=== PATIENT | male | born 1990 | race Caucasian/White ===

== ENCOUNTER 2019-06-16 01:32 | Emergency (ER) | payer OTHER ==
[~2019-06-16] VITALS: Ht 170.2 cm; Wt 84.4 kg
--- NOTE | 2019-06-16 01:51 | NUR ---
patient being seen by ER physician Dr. Bae.
[2019-06-16] MEDS ORDERED: LORAZEPAM 1 MG TABLET ONE (02:00)
[2019-06-16] MEDS ORDERED: LORAZEPAM 0.5 MG TABLET PO ONE (02:00)
--- NOTE | 2019-06-16 02:40 | NUR ---
Patient discharged to home in stable conditon. Written and verbal after care instructions given. Patient verbalizes understanding of instructions. Pt ambulated out of ER with steady gait, no acute signs of distress, VSS, all belongings taken.
[2019-06-16 02:42] VITALS: BP 114/65
== END 2019-06-16 03:17 | disposition home or self-care (01) ==
LOC: ER 01:40
DX: R10.30 Lower abdominal pain, unspecified (principal); F41.9 Anxiety disorder, unspecified; G47.00 Insomnia, unspecified; E78.00 Pure hypercholesterolemia, unspecified; J45.909 Unspecified asthma, uncomplicated; K21.9 Gastro-esophageal reflux disease without esophagitis; Z88.5 Allergy status to narcotic agent; Z88.1 Allergy status to other antibiotic agents; Z88.8 Allergy status to other drugs, medicaments and biological substances
CPT/HCPCS: A4663

== ENCOUNTER 2019-06-21 02:09 | Emergency (ER) | payer OTHER ==
[~2019-06-21] VITALS: Ht 170.2 cm; Wt 83.5 kg
[2019-06-21] MEDS ORDERED: predniSONE 20 MG TABLET PO ONE (02:30)
[2019-06-21] MEDS ORDERED: ALBUTEROL SULFATE 2.5 MG/3 ML NEBU NEB ONE (02:30)
[2019-06-21] MEDS ORDERED: predniSONE 20 MG TABLET ONE (02:36)
[2019-06-21] MEDS ORDERED: ALBUTEROL SULFATE 2.5 MG/3 ML NEBU ONE (02:38)
--- NOTE | 2019-06-21 02:55 | NUR ---
Patient statesafter breathing Tx "I feel better now."
[2019-06-21 02:59] VITALS: BP 118/75
--- NOTE | 2019-06-21 03:00 | NUR ---
Patient discharged to home in stable conditon. Written and verbal after care instructions given. Patient verbalizes understanding of instructions. walked out of ER with no distress noted
== END 2019-06-21 03:01 | disposition home or self-care (01) ==
LOC: ER 02:15
DX: J45.901 Unspecified asthma with (acute) exacerbation (principal); K21.9 Gastro-esophageal reflux disease without esophagitis; Z88.1 Allergy status to other antibiotic agents; Z88.5 Allergy status to narcotic agent; Z88.8 Allergy status to other drugs, medicaments and biological substances
CPT/HCPCS: 71045; 93005; 94640; 99283; J7512; A4663

== ENCOUNTER 2019-06-22 03:37 | Emergency (ER) | payer OTHER ==
[~2019-06-22] VITALS: Ht 170.2 cm; Wt 83.9 kg
--- NOTE | 2019-06-22 03:50 | NUR ---
PATIENT WAS MSE BY DR MANE IN ROOM 01B.
[2019-06-22] MEDS ORDERED: MAG HYDROX/AL HYDROX/SIMETH 30 ML LIQUID UDC PO ONE (04:00)
[2019-06-22] MEDS ORDERED: LIDOCAINE VISCUS 2% 15 ML UDC ONE (04:00)
[2019-06-22] MEDS ORDERED: MAG HYDROX/AL HYDROX/SIMETH 30 ML LIQUID UDC ONE (04:00)
[2019-06-22] MEDS ORDERED: LIDOCAINE VISCUS 2% 15 ML UDC MM ONE (04:00)
--- NOTE | 2019-06-22 05:00 | NUR ---
Patient is resting comfortably in bed with eyes closed.
--- NOTE | 2019-06-22 05:28 | NUR ---
Patient discharged to home in stable conditon. Written and verbal after care instructions given. Patient verbalizes understanding of instructions. No CP. No SOB.
[2019-06-22 05:35] VITALS: BP 105/61
== END 2019-06-22 05:40 | disposition home or self-care (01) ==
LOC: ER 03:38
DX: K21.9 Gastro-esophageal reflux disease without esophagitis (principal); J45.909 Unspecified asthma, uncomplicated; F41.9 Anxiety disorder, unspecified; Z88.1 Allergy status to other antibiotic agents; Z88.3 Allergy status to other anti-infective agents; Z88.8 Allergy status to other drugs, medicaments and biological substances
CPT/HCPCS: 93005; A4663

== ENCOUNTER 2019-06-25 01:21 | Emergency (ER) | payer OTHER ==
[~2019-06-25] VITALS: Ht 170.2 cm; Wt 80.7 kg
[2019-06-25] MEDS ORDERED: DICYCLOMINE HCL LIQ 10 MG/5 ML UDC ONE ×2 (01:57→01:58)
[2019-06-25] MEDS ORDERED: MAG HYDROX/AL HYDROX/SIMETH 30 ML LIQUID UDC ONE ×2 (01:57→01:58)
[2019-06-25] MEDS ORDERED: DICYCLOMINE HCL LIQ 10 MG/5 ML UDC PO ONE (02:00)
[2019-06-25] MEDS ORDERED: MAG HYDROX/AL HYDROX/SIMETH 30 ML LIQUID UDC PO ONE (02:00)
--- NOTE | 2019-06-25 02:19 | NUR ---
D/c to home after signed and understand ACI. f/u with pcp today. states feel much better.
[2019-06-25 02:21] VITALS: BP 122/74
== END 2019-06-25 02:22 | disposition home or self-care (01) ==
LOC: ER 01:24
DX: K21.9 Gastro-esophageal reflux disease without esophagitis (principal); R06.02 Shortness of breath; J45.909 Unspecified asthma, uncomplicated; F41.9 Anxiety disorder, unspecified; Z88.1 Allergy status to other antibiotic agents; Z88.5 Allergy status to narcotic agent; Z88.8 Allergy status to other drugs, medicaments and biological substances
CPT/HCPCS: 71045; A4663

== ENCOUNTER 2019-07-21 02:43 | Emergency (ER) | payer OTHER ==
[~2019-07-21] VITALS: Ht 170.2 cm; Wt 83.5 kg
[2019-07-21] MEDS ORDERED: diphenhydrAMINE 50 MG/1 ML VIAL ONE (03:14)
[2019-07-21] MEDS ORDERED: ALPRAZOLAM 0.25 MG TABLET PO ONE (03:15)
[2019-07-21] MEDS ORDERED: diphenhydrAMINE 50 MG/1 ML VIAL IM ONE (03:15)
[2019-07-21] MEDS ORDERED: ALPRAZOLAM 0.5 MG TABLET ONE (03:15)
[2019-07-21] MEDS ORDERED: ALBUTEROL SULFATE 2.5 MG/3 ML NEBU NEB ONE (03:15)
[2019-07-21] MEDS ORDERED: ALBUTEROL SULFATE 2.5 MG/3 ML NEBU ONE (03:16)
--- NOTE | 2019-07-21 03:51 | NUR ---
Patient discharged to home in stable conditon. Written and verbal after care instructions given. Patient verbalizes understanding of instructions.pt recieved complaining oallergic reaction , pt snoffing ,pt had respitory treatment .pt givenbenedryl im and xanax .pt discharged home after treatmen
[2019-07-21 04:04] VITALS: BP 136/87
== END 2019-07-21 04:06 | disposition home or self-care (01) ==
LOC: ER 02:52
DX: F41.9 Anxiety disorder, unspecified (principal); R06.00 Dyspnea, unspecified; J45.909 Unspecified asthma, uncomplicated; K21.9 Gastro-esophageal reflux disease without esophagitis; Z88.1 Allergy status to other antibiotic agents; Z88.5 Allergy status to narcotic agent; Z88.8 Allergy status to other drugs, medicaments and biological substances
CPT/HCPCS: 94640; 96372; 99284; J1200; A4663

== ENCOUNTER 2019-08-11 01:10 | Emergency (ER) | payer OTHER ==
[~2019-08-11] VITALS: Ht 170.2 cm; Wt 84.8 kg
[2019-08-11] MEDS ORDERED: ABILIFY (01:22)
[2019-08-11] MEDS ORDERED: ALBU8HFA4 (01:22)
[2019-08-11] MEDS ORDERED: OMEPRAZOLE (01:22)
[2019-08-11] MEDS ORDERED: GAVISCON (01:22)
--- NOTE | 2019-08-11 01:25 | NUR ---
Dr. Bae at bedside for MSE.
[2019-08-11] MEDS ORDERED: LORAZEPAM 0.5 MG TABLET PO ONE (01:30)
[2019-08-11] MEDS ORDERED: HYDROCODONE/APAP 10-325 MG TABLET PO ONE (01:30)
[2019-08-11] MEDS ORDERED: ONDANSETRON ODT 4 MG TAB.RAPDIS SL ONE (01:30)
[2019-08-11] MEDS ORDERED: IBUPROFEN 600 MG TABLET PO ONE (01:30)
--- NOTE | 2019-08-11 01:35 | NUR ---
Xray at bedside.
[2019-08-11] MEDS ORDERED: LORAZEPAM 1 MG TABLET ONE (01:36)
[2019-08-11] MEDS ORDERED: HYDROCODONE/APAP 10-325 MG TABLET ONE (01:36)
[2019-08-11] MEDS ORDERED: IBUPROFEN 600 MG TABLET ONE (01:37)
[2019-08-11] MEDS ORDERED: ONDANSETRON ODT 4 MG TAB.RAPDIS ONE (01:37)
[2019-08-11 01:46] VITALS: BP 117/69
== END 2019-08-11 01:47 | disposition home or self-care (01) ==
LOC: ER 01:13
DX: M94.0 Chondrocostal junction syndrome [Tietze] (principal); F41.9 Anxiety disorder, unspecified; R06.00 Dyspnea, unspecified; J45.909 Unspecified asthma, uncomplicated; K21.9 Gastro-esophageal reflux disease without esophagitis; E11.9 Type 2 diabetes mellitus without complications; Z88.5 Allergy status to narcotic agent; Z88.8 Allergy status to other drugs, medicaments and biological substances; Z88.1 Allergy status to other antibiotic agents; Z79.899 Other long term (current) drug therapy
CPT/HCPCS: 71045; 93005; A4663; Q0162

== ENCOUNTER 2019-08-18 02:06 | Emergency (ER) | payer OTHER ==
[~2019-08-18] VITALS: Ht 170.2 cm; Wt 84.4 kg
[~2019-08-18 02:06] MED LIST: ABILIFY; ALBU8HFA4; GAVISCON; OMEPRAZOLE
[2019-08-18] MEDS: LIDOCAINE VISCUS 2% 15 ML UDC MM ONE (02:27)
[2019-08-18] MEDS: MAG HYDROX/AL HYDROX/SIMETH 30 ML LIQUID UDC PO ONE (02:27)
[2019-08-18] MEDS ORDERED: LIDOCAINE VISCUS 2% 15 ML UDC ONE (02:29)
[2019-08-18] MEDS ORDERED: MAG HYDROX/AL HYDROX/SIMETH 30 ML LIQUID UDC ONE (02:29)
--- NOTE | 2019-08-18 02:53 | NUR ---
Patient discharged to home in stable conditon. Written and verbal after care instructions given. Patient verbalizes understanding of instructions. AMBULATORY W/ STABLE GAIT ALL BELOINGINGS W/ PT
[2019-08-18 03:01] VITALS: BP 135/82
== END 2019-08-18 02:55 | disposition home or self-care (01) ==
LOC: ER 02:09
DX: K21.9 Gastro-esophageal reflux disease without esophagitis (principal); J45.909 Unspecified asthma, uncomplicated; Z87.891 Personal history of nicotine dependence; Z88.1 Allergy status to other antibiotic agents; Z88.5 Allergy status to narcotic agent; Z88.8 Allergy status to other drugs, medicaments and biological substances; Z79.899 Other long term (current) drug therapy
CPT/HCPCS: A4663

== ENCOUNTER 2019-08-28 01:22 | Emergency (ER) | payer OTHER ==
[~2019-08-28] VITALS: Ht 170.2 cm; Wt 74.8 kg
[2019-08-28 01:59] LABS: BASOPHILS % (AUTO) 0.4 % (0.0-2.0); EOSINOPHILS # (AUTO) 0.1 K/uL (0.0-0.7); EOSINOPHILS % (AUTO) 1.2 % (0.0-7.0); HEMATOCRIT 44.3 % (36.7-47.1); HEMOGLOBIN 15.2 g/dL (12.5-16.3); LYMPHOCYTES # (AUTO) 3.3 K/uL (20.0-40.0); LYMPHOCYTES % (AUTO) 41.4 % (20.5-51.5); MEAN CORPUSCULAR HGB CONC 34 g/dL (32.5-36.3); MEAN CORPUSCULAR VOLUME 81.7 fL (73.0-96.2); MONOCYTES # (AUTO) 0.4 K/uL (2.0-10.0); MONOCYTES % (AUTO) 5.3 % (0.0-11.0); NEUTROPHILS # (AUTO) 4.1 K/uL (1.8-8.9); NEUTROPHILS % (AUTO) 51.7 % (38.5-71.5); PLATELET COUNT (AUTO) 198 K/uL (152-348); RED BLOOD CELL COUNT(AUTO) 5.42 MIL/uL (4.06-5.63); WHITE BLOOD COUNT (AUTO) 7.9 K/uL (3.6-10.2)
--- NOTE | 2019-08-28 02:05 | NUR ---
PT ASLEEP BUT EASILY ROUSED, NAD SIDERAILSX2 UP BED AT LOWEST POSITION INTACT G20 SALINE LOCK TO R AC KEPT WARM DRY AND COMFORTABLE
[2019-08-28 02:08] LABS: POTASSIUM 3.7 mmol/L (3.5-5.1)
--- NOTE | 2019-08-28 02:50 | NUR ---
MD AT BEDSIDE FOR HX AND PHYSICAL
[2019-08-28] MEDS ORDERED: ASPIRIN 325 MG TABLET PO ONE (03:15)
[2019-08-28] MEDS ORDERED: ASPIRIN 325 MG TABLET ONE (03:16)
--- NOTE | 2019-08-28 03:16 | NUR ---
PT SIGNED AMA FORM IV SALINE LOCK DC, DRESSED Patient does not wish to proceed with medical care recommended by Dr. GODWIN. Patient given information related to possible complications, up to and including , which could occur as a result of leaving the hospital at this time. Patient verbalizes understanding of risks involved due to leaving against medical advice. Patient has signed AMA form. AMBULATORY W/ STABLE GAIT ALL BELONGINGS W/ PT
[2019-08-28 03:27] VITALS: BP 118/70
== END 2019-08-28 03:15 | disposition left against medical advice (07) ==
LOC: ER 01:26
DX: R07.89 Other chest pain (principal); J45.909 Unspecified asthma, uncomplicated; K21.9 Gastro-esophageal reflux disease without esophagitis; Z88.1 Allergy status to other antibiotic agents; Z88.5 Allergy status to narcotic agent; Z88.8 Allergy status to other drugs, medicaments and biological substances; Z87.891 Personal history of nicotine dependence; Z79.899 Other long term (current) drug therapy
CPT/HCPCS: 36415; 70030-TC; 71045; 85025; A4663

== ENCOUNTER 2019-10-09 03:48 | Emergency (ER) | payer OTHER ==
[~2019-10-09] VITALS: Ht 170.2 cm; Wt 83.9 kg
[2019-10-09] MEDS ORDERED: ALBUTEROL SULFATE 2.5 MG/3 ML NEBU ONE (04:10)
[2019-10-09] MEDS ORDERED: ALBUTEROL SULFATE 2.5 MG/3 ML NEBU NEB ONE (04:15)
--- NOTE | 2019-10-09 04:24 | NUR ---
Patient states "feeling better after breathing Tx." Dr Doyle into re eval patient.
--- NOTE | 2019-10-09 04:26 | NUR ---
Patient discharged to home in stable conditon. Written and verbal after care instructions given. Patient verbalizes understanding of instructions. Walked out of ER with no distress noted.
[2019-10-09 04:28] VITALS: BP 122/78
== END 2019-10-09 04:30 | disposition home or self-care (01) ==
LOC: ER 03:50
DX: R06.00 Dyspnea, unspecified (principal); F41.9 Anxiety disorder, unspecified; J45.909 Unspecified asthma, uncomplicated; K21.9 Gastro-esophageal reflux disease without esophagitis; Z87.891 Personal history of nicotine dependence; Z88.1 Allergy status to other antibiotic agents; Z88.5 Allergy status to narcotic agent; Z88.8 Allergy status to other drugs, medicaments and biological substances; Z79.899 Other long term (current) drug therapy
CPT/HCPCS: A4663

== ENCOUNTER 2019-10-17 00:53 | Emergency (ER) | payer OTHER ==
[~2019-10-17] VITALS: Ht 170.2 cm; Wt 87.5 kg
[2019-10-17] MEDS ORDERED: PANT20TA2 PO (01:03)
--- NOTE | 2019-10-17 01:16 | NUR ---
Dr Mendoza into eval patient.
[2019-10-17] MEDS ORDERED: EPINEPHRINE 1 MG/1 ML AMP ONE (01:29)
[2019-10-17] MEDS ORDERED: predniSONE 10 MG TABLET ONE (01:29)
[2019-10-17] MEDS ORDERED: predniSONE 50 MG TABLET ONE (01:29)
[2019-10-17] MEDS ORDERED: FAMOTIDINE 20 MG TABLET ONE (01:30)
[2019-10-17] MEDS ORDERED: EPINEPHRINE-PF 1:1000 1 MG/ML AMPUL MC ONE (01:30)
[2019-10-17] MEDS ORDERED: FAMOTIDINE 20 MG TABLET PO ONE (01:30)
[2019-10-17] MEDS ORDERED: predniSONE 20 MG TABLET PO ONE (01:30)
--- NOTE | 2019-10-17 02:10 | NUR ---
Patient stating "I feel better now."
[2019-10-17 03:09] VITALS: BP 122/60
--- NOTE | 2019-10-17 03:09 | NUR ---
Patient discharged to home in stable conditon with ub[employer] taking patient home. Written and verbal after care instructions given. Patient verbalizes understanding of instructions. Walked out of ER with no distress noted.
== END 2019-10-17 03:10 | disposition home or self-care (01) ==
LOC: ER 00:56
DX: T78.40XA Allergy, unspecified, initial encounter (principal); J45.909 Unspecified asthma, uncomplicated; K21.9 Gastro-esophageal reflux disease without esophagitis; Z88.1 Allergy status to other antibiotic agents; Z88.5 Allergy status to narcotic agent; Z88.8 Allergy status to other drugs, medicaments and biological substances; Z87.891 Personal history of nicotine dependence; Z79.899 Other long term (current) drug therapy
CPT/HCPCS: 99284; J0171; J7512 ×2; A4663

== ENCOUNTER 2019-11-03 03:38 | Emergency (ER) | payer OTHER ==
[~2019-11-03] VITALS: Ht 170.2 cm; Wt 86.2 kg
[~2019-11-03 03:38] MED LIST changes: -OMEPRAZOLE; +PANT20TA2 PO
--- NOTE | 2019-11-03 04:02 | NUR ---
Dr. New at bedside for MSE.
--- NOTE | 2019-11-03 04:14 | NUR ---
Respiratory at bedside.
[2019-11-03] MEDS ORDERED: MAG HYDROX/AL HYDROX/SIMETH 30 ML LIQUID UDC ONE (04:16)
[2019-11-03] MEDS ORDERED: LIDOCAINE VISCUS 2% 15 ML UDC ONE (04:16)
[2019-11-03] MEDS ORDERED: predniSONE 50 MG TABLET ONE (04:18)
[2019-11-03] MEDS: MAG HYDROX/AL HYDROX/SIMETH 30 ML LIQUID UDC PO ONE (04:19)
[2019-11-03] MEDS: predniSONE 50 MG TABLET PO ONE (04:19)
[2019-11-03] MEDS: LIDOCAINE VISCUS 2% 15 ML UDC MM ONE (04:19)
[2019-11-03] MEDS ORDERED: IPRATROPIUM BROMIDE 0.5 MG/2.5 ML NEBU ONE (04:22)
[2019-11-03] MEDS ORDERED: ALBUTEROL SULFATE 2.5 MG/3 ML NEBU ONE (04:22)
[2019-11-03 04:26] LABS: BASOPHILS % (AUTO) 0.5 % (0.0-2.0); EOSINOPHILS # (AUTO) 0.1 K/uL (0.0-0.7); EOSINOPHILS % (AUTO) 0.8 % (0.0-7.0); HEMATOCRIT 45.1 % (36.7-47.1); HEMOGLOBIN 15.2 g/dL (12.5-16.3); LYMPHOCYTES # (AUTO) 2.6 K/uL (20.0-40.0); LYMPHOCYTES % (AUTO) 41.7 % (20.5-51.5); MEAN CORPUSCULAR HEMOGLOBIN 27.3 uug (23.8-33.4); MEAN CORPUSCULAR HGB CONC 34 g/dL (32.5-36.3); MEAN CORPUSCULAR VOLUME 80.6 fL (73.0-96.2); MONOCYTES # (AUTO) 0.4 K/uL (2.0-10.0); MONOCYTES % (AUTO) 5.9 % (0.0-11.0); NEUTROPHILS # (AUTO) 3.2 K/uL (1.8-8.9); NEUTROPHILS % (AUTO) 51.1 % (38.5-71.5); PLATELET COUNT (AUTO) 204 K/uL (152-348); RED BLOOD CELL COUNT(AUTO) 5.59 MIL/uL (4.06-5.63); WHITE BLOOD COUNT (AUTO) 6.3 K/uL (3.6-10.2)
[2019-11-03] MEDS: ALBUTEROL SULFATE 2.5 MG/3 ML NEBU NEB ONE (04:30)
[2019-11-03] MEDS: IPRATROPIUM BROMIDE 0.5 MG/2.5 ML NEBU NEB ONE (04:30)
[2019-11-03 04:34] LABS: POTASSIUM 3.6 mmol/L (3.5-5.1)
[2019-11-03 04:45] LABS: BILIRUBIN,DIRECT 0.1 mg/dL (0.0-0.2); BILIRUBIN,TOTAL 0.3 mg/dL (0.2-1.0); TOTAL PROTEIN, SERUM 7.4 g/dL (6.4-8.2)
[2019-11-03 05:46] VITALS: BP 145/51
== END 2019-11-03 05:47 | disposition home or self-care (01) ==
LOC: ER 03:39
DX: K21.9 Gastro-esophageal reflux disease without esophagitis (principal); J45.901 Unspecified asthma with (acute) exacerbation; G47.30 Sleep apnea, unspecified; Z87.891 Personal history of nicotine dependence; Z88.1 Allergy status to other antibiotic agents; Z88.5 Allergy status to narcotic agent; Z88.8 Allergy status to other drugs, medicaments and biological substances; Z79.899 Other long term (current) drug therapy
CPT/HCPCS: 36415; 80048; 80076; 83690; 84484; 85025; 93005; 94640; 99284; J7512; 70030-TC; A4663; J3590

== ENCOUNTER 2020-01-17 01:33 | Emergency (ER) | payer OTHER ==
[~2020-01-17] VITALS: Ht 170.2 cm; Wt 92.5 kg
[2020-01-17] MEDS ORDERED: SULF1TAB48 PO (01:44)
[2020-01-17] MEDS ORDERED: CEPH-570 PO (01:44)
--- NOTE | 2020-01-17 01:49 | NUR ---
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 No acute distress, appears comfortable upon arrival to ER. Ambulated with stable gait, no visible respiratory distress is noted. Respirations even and unlabored. No accessory muscle use noted.
[2020-01-17] MEDS ORDERED: ALBUTEROL SULFATE 2.5 MG/3 ML NEBU NEB ONE (02:30)
[2020-01-17] MEDS ORDERED: FAMOTIDINE 20 MG TABLET PO ONE (02:30)
[2020-01-17] MEDS ORDERED: IPRATROPIUM BROMIDE 0.5 MG/2.5 ML NEBU NEB ONE (02:30)
[2020-01-17] MEDS ORDERED: ASPIRIN 81 MG TAB.CHEW PO ONE (02:30)
[2020-01-17] MEDS ORDERED: ALBUTEROL SULFATE 2.5 MG/3 ML NEBU ONE (02:36)
[2020-01-17] MEDS ORDERED: IPRATROPIUM BROMIDE 0.5 MG/2.5 ML NEBU ONE (02:36)
[2020-01-17] MEDS ORDERED: ASPIRIN 81 MG TAB.CHEW ONE (02:42)
[2020-01-17] MEDS ORDERED: FAMOTIDINE 20 MG TABLET ONE (02:42)
[2020-01-17 02:51] LABS: BASOPHILS # (AUTO) 0.1 K/uL (0.0-8.0); BASOPHILS % (AUTO) 0.7 % (0.0-2.0); EOSINOPHILS # (AUTO) 0.1 K/uL (0.0-0.7); EOSINOPHILS % (AUTO) 0.8 % (0.0-7.0); HEMATOCRIT 44.2 % (36.7-47.1); HEMOGLOBIN 15.2 g/dL (12.5-16.3); LYMPHOCYTES # (AUTO) 2.9 K/uL (20.0-40.0); LYMPHOCYTES % (AUTO) 40.5 % (20.5-51.5); MEAN CORPUSCULAR HEMOGLOBIN 27.1 uug (23.8-33.4); MEAN CORPUSCULAR HGB CONC 34 g/dL (32.5-36.3); MEAN CORPUSCULAR VOLUME 78.9 fL (73.0-96.2); MONOCYTES # (AUTO) 0.5 K/uL (2.0-10.0); MONOCYTES % (AUTO) 7.3 % (0.0-11.0); NEUTROPHILS # (AUTO) 3.7 K/uL (1.8-8.9); NEUTROPHILS % (AUTO) 50.7 % (38.5-71.5); PLATELET COUNT (AUTO) 214 K/uL (152-348); RED BLOOD CELL COUNT(AUTO) 5.61 MIL/uL (4.06-5.63); WHITE BLOOD COUNT (AUTO) 7.2 K/uL (3.6-10.2)
[2020-01-17 02:56] LABS: CREATININE 1.3 mg/dL (0.6-1.3); POTASSIUM 3.8 mmol/L (3.5-5.1)
--- NOTE | 2020-01-17 03:00 | NUR ---
Patient resting in bed, no acute distress noted. VSS
--- NOTE | 2020-01-17 04:00 | NUR ---
Patient remains in bed, no acute distress noted. Respirations even and unlabored. No cardiovascular distress noted. VSS
--- NOTE | 2020-01-17 05:07 | NUR ---
Patient in bed, no acute distress noted. VSS. All patient needs attended and met. Xray complete at this time. Repeate EKG complete.
--- NOTE | 2020-01-17 05:30 | NUR ---
Patient discharged to home in stable conditon. Written and verbal after care instructions given. Patient verbalizes understanding of instructions. Ambulated from ER with stable gait. All belongings with patient. Patient driven home by taxi. VSS
[2020-01-17 05:31] VITALS: BP 121/71
== END 2020-01-17 05:36 | disposition home or self-care (01) ==
LOC: ER 01:36
DX: R07.89 Other chest pain (principal); R06.00 Dyspnea, unspecified; R11.0 Nausea; R42 Dizziness and giddiness; K21.9 Gastro-esophageal reflux disease without esophagitis; J45.909 Unspecified asthma, uncomplicated; F17.200 Nicotine dependence, unspecified, uncomplicated; Z88.1 Allergy status to other antibiotic agents; Z88.5 Allergy status to narcotic agent; Z60.2 Problems related to living alone; Z79.899 Other long term (current) drug therapy
CPT/HCPCS: 36415; 70030-TC; 71045; 85025; 93005; A4663; J3590

== ENCOUNTER 2020-06-14 05:20 | Emergency (ER) | payer OTHER ==
[~2020-06-14] VITALS: Ht 170.2 cm; Wt 88.5 kg
[~2020-06-14 05:20] MED LIST changes: -ABILIFY; +ABILIFY PO; +CEPH-570 PO; -GAVISCON; +SULF1TAB48 PO
--- NOTE | 2020-06-14 05:40 | NUR ---
IZABELLA JUAREZ at bedside for MSE
[2020-06-14 05:58] LABS: BASOPHILS % (AUTO) 0.6 % (0.0-2.0); EOSINOPHILS % (AUTO) 0.8 % (0.0-7.0); HEMATOCRIT 45.1 % (36.7-47.1); HEMOGLOBIN 15.3 g/dL (12.5-16.3); LYMPHOCYTES # (AUTO) 2.2 K/uL (20.0-40.0); LYMPHOCYTES % (AUTO) 36.7 % (20.5-51.5); MEAN CORPUSCULAR HEMOGLOBIN 27.4 uug (23.8-33.4); MEAN CORPUSCULAR HGB CONC 34 g/dL (32.5-36.3); MEAN CORPUSCULAR VOLUME 80.7 fL (73.0-96.2); MONOCYTES # (AUTO) 0.3 K/uL (2.0-10.0); MONOCYTES % (AUTO) 5.6 % (0.0-11.0); NEUTROPHILS # (AUTO) 3.4 K/uL (1.8-8.9); NEUTROPHILS % (AUTO) 56.3 % (38.5-71.5); PLATELET COUNT (AUTO) 196 K/uL (152-348); RED BLOOD CELL COUNT(AUTO) 5.59 MIL/uL (4.06-5.63)
[2020-06-14] MEDS ORDERED: DICYCLOMINE HCL LIQ 10 MG/5 ML UDC PO ONE (06:00)
[2020-06-14] MEDS ORDERED: MAG HYDROX/AL HYDROX/SIMETH 30 ML LIQUID UDC PO ONE (06:00)
[2020-06-14] MEDS ORDERED: LIDOCAINE VISCUS 2% 15 ML UDC MM ONE (06:00)
[2020-06-14] MEDS ORDERED: LIDOCAINE VISCUS 2% 15 ML UDC ONE (06:03)
[2020-06-14] MEDS ORDERED: MAG HYDROX/AL HYDROX/SIMETH 30 ML LIQUID UDC ONE (06:04)
[2020-06-14] MEDS ORDERED: DICYCLOMINE HCL LIQ 10 MG/5 ML UDC ONE ×2 (06:04)
[2020-06-14 06:08] LABS: CREATININE 1.1 mg/dL (0.6-1.3); POTASSIUM 3.8 mmol/L (3.5-5.1)
[2020-06-14 06:14] LABS: BILIRUBIN,DIRECT 0.1 mg/dL (0.0-0.2); BILIRUBIN,TOTAL 0.4 mg/dL (0.2-1.0)
--- NOTE | 2020-06-14 06:30 | NUR ---
Patient discharged to home in stable condition. ambulated with steady gait, took an [employer] home. Written and verbal after care instructions given. no signs of acute distress. Patient verbalizes understanding of instructions. Stressed follow up or return to ER for worsening s/s.
[2020-06-14 06:33] VITALS: BP 123/84
== END 2020-06-14 06:30 | disposition home or self-care (01) ==
LOC: ER 05:22
DX: R10.9 Unspecified abdominal pain (principal); K21.9 Gastro-esophageal reflux disease without esophagitis; K58.0 Irritable bowel syndrome with diarrhea; F95.2 Tourette's disorder; J45.909 Unspecified asthma, uncomplicated
CPT/HCPCS: 36415; 71045; 83690; 85025; 93005; A4663

== ENCOUNTER 2020-06-21 03:04 | Emergency (ER) | payer OTHER ==
[~2020-06-21] VITALS: Ht 170.2 cm; Wt 90.7 kg
--- NOTE | 2020-06-21 03:04 | NUR ---
at bedside for MSE
[2020-06-21] MEDS ORDERED: DICYCLOMINE HCL LIQ 10 MG/5 ML UDC PO ONE (03:15)
[2020-06-21] MEDS ORDERED: MAG HYDROX/AL HYDROX/SIMETH 30 ML LIQUID UDC PO ONE (03:15)
[2020-06-21] MEDS ORDERED: LIDOCAINE VISCUS 2% 15 ML UDC MM ONE ×2 (03:15)
[2020-06-21] MEDS ORDERED: LIDOCAINE VISCUS 2% 15 ML UDC ONE (03:20)
[2020-06-21] MEDS ORDERED: DICYCLOMINE HCL LIQ 10 MG/5 ML UDC ONE (03:20)
[2020-06-21] MEDS ORDERED: MAG HYDROX/AL HYDROX/SIMETH 30 ML LIQUID UDC ONE (03:21)
--- NOTE | 2020-06-21 03:47 | NUR ---
Patient discharged to home in stable condition. Patient states pain level went from an 8/10 to 3/10. patient noted ambulating with steady gait. 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 Written and verbal after care instructions given. Patient verbalizes understanding of instructions. Stressed follow up or return to ER for worsening s/s.
[2020-06-21 04:00] VITALS: BP 125/70
== END 2020-06-21 03:47 | disposition home or self-care (01) ==
LOC: ER 03:05
DX: R10.13 Epigastric pain (principal); J45.909 Unspecified asthma, uncomplicated; K21.9 Gastro-esophageal reflux disease without esophagitis; K58.9 Irritable bowel syndrome, unspecified; Z79.899 Other long term (current) drug therapy; F95.2 Tourette's disorder
CPT/HCPCS: 93005; A4663

== ENCOUNTER 2020-06-27 02:15 | Emergency (ER) | payer OTHER ==
[~2020-06-27] VITALS: Ht 170.2 cm; Wt 88.0 kg
--- NOTE | 2020-06-27 02:25 | NUR ---
Dr. Bae at bedside for MSE.
[2020-06-27] MEDS ORDERED: LORAZEPAM 0.5 MG TABLET PO ONE (02:45)
[2020-06-27] MEDS ORDERED: LORAZEPAM 0.5 MG TABLET ONE (02:46)
--- NOTE | 2020-06-27 02:47 | NUR ---
Patient discharged to home in stable condition. Written and verbal after care instructions given. Patient verbalizes understanding of instructions. Stressed follow up with PMD or return to ER for worsening s/s. 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 Veralized understanding. Ambulated ot of ER in steady gait.
[2020-06-27 02:49] VITALS: BP 149/90
== END 2020-06-27 02:50 | disposition home or self-care (01) ==
LOC: ER 02:16
DX: F41.9 Anxiety disorder, unspecified (principal); K21.9 Gastro-esophageal reflux disease without esophagitis; F95.2 Tourette's disorder; J45.909 Unspecified asthma, uncomplicated; K58.9 Irritable bowel syndrome, unspecified; Z79.899 Other long term (current) drug therapy; Z88.6 Allergy status to analgesic agent; Z88.1 Allergy status to other antibiotic agents; G47.30 Sleep apnea, unspecified
CPT/HCPCS: A4663

== ENCOUNTER 2020-07-03 03:22 | Emergency (ER) | payer OTHER ==
[~2020-07-03] VITALS: Ht 170.2 cm; Wt 89.8 kg
--- NOTE | 2020-07-03 03:38 | NUR ---
ARRIVED AT THE ER WITH C/O ACID REFLUX/ANXIETY X 2 HRS.
[2020-07-03] MEDS ORDERED: MAG HYDROX/AL HYDROX/SIMETH 30 ML LIQUID UDC ONE (03:59)
[2020-07-03] MEDS ORDERED: DICYCLOMINE HCL LIQ 10 MG/5 ML UDC PO ONE (04:00)
[2020-07-03] MEDS ORDERED: LIDOCAINE VISCUS 2% 15 ML UDC ONE (04:00)
[2020-07-03] MEDS ORDERED: DICYCLOMINE HCL LIQ 10 MG/5 ML UDC ONE (04:00)
[2020-07-03] MEDS ORDERED: LIDOCAINE VISCUS 2% 15 ML UDC MM ONE (04:00)
[2020-07-03] MEDS ORDERED: MAG HYDROX/AL HYDROX/SIMETH 30 ML LIQUID UDC PO ONE (04:00)
--- NOTE | 2020-07-03 04:20 | NUR ---
Patient discharged to home in stable condition. Written and verbal after care instructions given. Patient verbalizes understanding of instructions. Stressed follow up or return to ER for worsening s/s. Patient ambulated with stable gait.
[2020-07-03 04:21] VITALS: BP 112/79
== END 2020-07-03 04:24 | disposition home or self-care (01) ==
LOC: ER 03:24
DX: R10.13 Epigastric pain (principal); Z82.49 Family history of ischemic heart disease and other diseases of the circulatory system; F17.291 Nicotine dependence, other tobacco product, in remission; Z88.1 Allergy status to other antibiotic agents; Z88.8 Allergy status to other drugs, medicaments and biological substances; K21.9 Gastro-esophageal reflux disease without esophagitis; J45.909 Unspecified asthma, uncomplicated; K58.9 Irritable bowel syndrome, unspecified; F95.2 Tourette's disorder; F41.9 Anxiety disorder, unspecified; G47.30 Sleep apnea, unspecified
CPT/HCPCS: 93005; A4663

== ENCOUNTER 2020-07-05 01:56 | Emergency (ER) | payer OTHER ==
[~2020-07-05] VITALS: Ht 170.2 cm; Wt 89.8 kg
[~2020-07-05 01:56] MED LIST changes: -CEPH-570 PO; -SULF1TAB48 PO
--- NOTE | 2020-07-05 02:16 | NUR ---
at bedside for MSE
[2020-07-05] MEDS ORDERED: FAMOTIDINE 20 MG TABLET ONE (02:25)
[2020-07-05] MEDS ORDERED: LIDOCAINE VISCUS 2% 15 ML UDC ONE (02:28)
[2020-07-05] MEDS ORDERED: MAG HYDROX/AL HYDROX/SIMETH 30 ML LIQUID UDC ONE (02:28)
[2020-07-05] MEDS ORDERED: MAG HYDROX/AL HYDROX/SIMETH 30 ML LIQUID UDC PO ONE (02:30)
[2020-07-05] MEDS ORDERED: LIDOCAINE VISCUS 2% 15 ML UDC MM ONE (02:30)
--- NOTE | 2020-07-05 02:30 | NUR ---
Patient swallowed oral medication without difficulty, no signs of distress noted
[2020-07-05] MEDS ORDERED: ACETAMINOPHEN ES 500 MG TABLET ONE (02:38)
--- NOTE | 2020-07-05 02:40 | NUR ---
Patient discharged to home in stable condition. Noted ambulating with steady gait, no sign sof distress noted. Instructed to follow up with GI MD. All belongings left with patient. Written and verbal after care instructions given. Patient verbalizes understanding of instructions. Stressed follow up or return to ER for worsening s/s.
[2020-07-05] MEDS ORDERED: ACETAMINOPHEN ES 500 MG TABLET PO ONE (02:45)
[2020-07-05 02:46] VITALS: BP 143/77
== END 2020-07-05 02:45 | disposition home or self-care (01) ==
LOC: ER 01:58
DX: R13.10 Dysphagia, unspecified (principal); K21.9 Gastro-esophageal reflux disease without esophagitis; M26.609 Unspecified temporomandibular joint disorder, unspecified side; F41.9 Anxiety disorder, unspecified; F95.2 Tourette's disorder; G47.30 Sleep apnea, unspecified; J45.909 Unspecified asthma, uncomplicated; K58.9 Irritable bowel syndrome, unspecified; Z88.6 Allergy status to analgesic agent; Z88.1 Allergy status to other antibiotic agents; Z79.899 Other long term (current) drug therapy
CPT/HCPCS: A4663; A9150

== ENCOUNTER 2020-07-10 02:14 | Emergency (ER) | payer OTHER ==
[~2020-07-10] VITALS: Ht 170.2 cm; Wt 89.4 kg
[2020-07-10] MEDS ORDERED: SUCRALFATE 1 G/10 ML LIQUID UDC ONE (02:38)
[2020-07-10] MEDS ORDERED: METOCLOPRAMIDE HCL 10 MG TABLET ONE (02:38)
[2020-07-10 02:42] VITALS: BP 124/72
--- NOTE | 2020-07-10 02:42 | NUR ---
Patient discharged to home in stable condition. Written and verbal after care instructions given. Patient verbalizes understanding of instructions. Stressed follow up or return to ER for worsening s/s.
[2020-07-10] MEDS ORDERED: METOCLOPRAMIDE HCL 10 MG TABLET PO ONE (02:45)
[2020-07-10] MEDS ORDERED: SUCRALFATE 1 G TABLET PO SCH (02:45)
== END 2020-07-10 02:43 | disposition home or self-care (01) ==
LOC: ER 02:16
DX: R10.33 Periumbilical pain (principal); R11.0 Nausea; K58.9 Irritable bowel syndrome, unspecified; K21.9 Gastro-esophageal reflux disease without esophagitis; F95.2 Tourette's disorder; M26.609 Unspecified temporomandibular joint disorder, unspecified side; F41.9 Anxiety disorder, unspecified; Z88.6 Allergy status to analgesic agent; Z88.1 Allergy status to other antibiotic agents; J45.909 Unspecified asthma, uncomplicated; Z79.899 Other long term (current) drug therapy
CPT/HCPCS: A4663; J8597

== ENCOUNTER 2020-07-13 02:01 | Emergency (ER) | payer OTHER ==
[~2020-07-13] VITALS: Ht 170.2 cm; Wt 88.5 kg
[2020-07-13] MEDS ORDERED: DICYCLOMINE HCL LIQ 10 MG/5 ML UDC PO ONE (02:15)
[2020-07-13] MEDS ORDERED: MAG HYDROX/AL HYDROX/SIMETH 30 ML LIQUID UDC PO ONE (02:15)
--- NOTE | 2020-07-13 02:15 | NUR ---
at bedside for MSE
[2020-07-13] MEDS ORDERED: MAG HYDROX/AL HYDROX/SIMETH 30 ML LIQUID UDC ONE ×2 (02:25→02:26)
[2020-07-13] MEDS ORDERED: DICYCLOMINE HCL LIQ 10 MG/5 ML UDC ONE (02:26)
[2020-07-13] MEDS ORDERED: PANTOPRAZOLE SODIUM 40 MG TABLET.DR PO ONE ×2 (02:26→02:30)
--- NOTE | 2020-07-13 02:52 | NUR ---
Patient states he feels "better", denies sob at this time
--- NOTE | 2020-07-13 02:57 | NUR ---
Patient discharged to home in stable condition.No signs of distress, took all belongings, noted ambulating with steady gait. Written and verbal after care instructions given. Patient verbalizes understanding of instructions. Stressed follow up or return to ER for worsening s/s.
[2020-07-13 02:58] VITALS: BP 130/83
== END 2020-07-13 02:58 | disposition home or self-care (01) ==
LOC: ER 02:04
DX: K21.9 Gastro-esophageal reflux disease without esophagitis (principal); F17.291 Nicotine dependence, other tobacco product, in remission; Z88.6 Allergy status to analgesic agent; Z88.1 Allergy status to other antibiotic agents; Z88.8 Allergy status to other drugs, medicaments and biological substances; G47.30 Sleep apnea, unspecified; F41.9 Anxiety disorder, unspecified; K58.9 Irritable bowel syndrome, unspecified; F95.2 Tourette's disorder; J45.909 Unspecified asthma, uncomplicated; M26.609 Unspecified temporomandibular joint disorder, unspecified side
CPT/HCPCS: A4663

== ENCOUNTER 2020-07-15 01:20 | Emergency (ER) | payer OTHER ==
[~2020-07-15] VITALS: Ht 170.2 cm; Wt 88.5 kg
--- NOTE | 2020-07-15 01:37 | NUR ---
Dr. Stockton at bedside for MSE
[2020-07-15] MEDS ORDERED: LORAZEPAM 0.5 MG TABLET PO ONE (01:45)
[2020-07-15] MEDS ORDERED: LORAZEPAM 1 MG TABLET ONE (01:46)
--- NOTE | 2020-07-15 01:48 | NUR ---
Patient discharged to home in stable condition. Written and verbal after care instructions given. Patient verbalizes understanding of instructions. Stressed follow up or return to ER for worsening s/s. aa/ox4. able to speak in complete sentences no s/s of distress in stable condition ambulatory with steady gait instructed pt not to drive. pt stated he will take [employer] home all belongings with pt
[2020-07-15 01:50] VITALS: BP 124/78
== END 2020-07-15 01:51 | disposition home or self-care (01) ==
LOC: ER 01:22
DX: F41.9 Anxiety disorder, unspecified (principal); J45.909 Unspecified asthma, uncomplicated; K21.9 Gastro-esophageal reflux disease without esophagitis; K58.9 Irritable bowel syndrome, unspecified; F95.2 Tourette's disorder; G47.30 Sleep apnea, unspecified; Z88.1 Allergy status to other antibiotic agents; Z88.8 Allergy status to other drugs, medicaments and biological substances; Z79.899 Other long term (current) drug therapy; F17.291 Nicotine dependence, other tobacco product, in remission
CPT/HCPCS: A4663

== ENCOUNTER 2020-07-17 06:10 | Emergency (ER) | payer OTHER ==
[~2020-07-17] VITALS: Ht 170.2 cm; Wt 88.5 kg
[2020-07-17] MEDS ORDERED: BUDE1AMP IH (06:22)
[2020-07-17] MEDS ORDERED: IPRA3AMP22 IH (06:22)
[2020-07-17] MEDS ORDERED: MAG HYDROX/AL HYDROX/SIMETH 30 ML LIQUID UDC ONE (06:54)
[2020-07-17] MEDS ORDERED: LIDOCAINE VISCUS 2% 15 ML UDC ONE (06:55)
[2020-07-17] MEDS ORDERED: MAG HYDROX/AL HYDROX/SIMETH 30 ML LIQUID UDC PO ONE (07:00)
[2020-07-17] MEDS ORDERED: LIDOCAINE VISCUS 2% 15 ML UDC MM ONE (07:00)
== END 2020-07-17 06:59 | disposition home or self-care (01) ==
LOC: ER 06:13
DX: R07.0 Pain in throat (principal); F41.9 Anxiety disorder, unspecified; K21.9 Gastro-esophageal reflux disease without esophagitis; J45.909 Unspecified asthma, uncomplicated; R03.0 Elevated blood-pressure reading, without diagnosis of hypertension; F95.2 Tourette's disorder; Z88.1 Allergy status to other antibiotic agents; Z88.8 Allergy status to other drugs, medicaments and biological substances
CPT/HCPCS: 93005; A4663